=== PATIENT | female | born 2000 | race Two or more races ===

== ENCOUNTER 2024-11-26 07:28 | Emergency (ER) | payer OTHER ==
[~2024-11-26] VITALS: Ht 167.6 cm; Wt 63.5 kg
[2024-11-26] MEDS ORDERED: KEPPRA1000 MG PO (07:39)
[2024-11-26] MEDS ORDERED: KETOROLAC TROMETHAMINE 60 MG VIAL IM STA (07:39)
[2024-11-26] MEDS ORDERED: ORPHENADRINE CITRATE 30 MG/ML AMPUL IM STA (07:39)
[2024-11-26] MEDS ORDERED: LAMICTAL100 M1 PO (07:40)
[2024-11-26] MEDS ORDERED: ORPHENADRINE CITRATE 30 MG/ML AMPUL ONE (07:48)
[2024-11-26] MEDS ORDERED: KETOROLAC TROMETHAMINE 60 MG VIAL IM ONE (07:49)
[2024-11-26 08:19] LABS: BASO % 0.5 % (0.1-1.2); EOS # 0.04 (0.04-0.54); EOS % 0.7 % (0.7-7.0); LYMPH # 1.47 (1.18-3.74); LYMPH % 25.0 % (19.3-53.1); MEAN PLATELET VOLUME 10.40 fl (9.4-12.4); MONO # 0.27 (0.24-0.82); MONO % 4.6 % (4.7-12.5); NEUT # 4.05 (1.56-6.13); NEUT % 68.9 % (34.0-71.1); RED CELL DISTRIBUTION WIDTH 11.9 % (11.6-14.4)
[2024-11-26 08:46] LABS: ALT/SGPT 21.0 U/L (12-78); AST/SGOT 19.0 U/L (15-37); BILIRUBIN TOTAL 0.31 mg/dL (0.3-1.2); BUN CREA RATIO 28.0 (7.0-25.0); CREATININE SERUM 0.72 mg/dL (0.55-1.02); GFR 98.69; GLOBULINA 4.1 G/DL (2.4-3.5); GLUCOSE FASTING 109.0 mg/dL (65-100); OSMOLALITY SERUM 284.0 MOSM/KG (275-295)
== END 2024-11-26 12:01 | disposition home or self-care (01) ==
LOC: ER 07:33
PROVIDERS: General Practice
DX: G40.89 Other seizures (principal)